=== PATIENT | female | born 1950 | race Two or more races ===

== ENCOUNTER 2022-07-30 09:29 | Outpatient (CLI) | payer OTHER | END 2022-07-30 09:39 | disposition home or self-care (01) | LOC: MRI 09:29 | PROVIDERS: ATTEND Obstetrics & Gynecology Gynecologic Oncology | DX: C54.1 Malignant neoplasm of endometrium (principal) | CPT/HCPCS: 72197; Q9965 ==

== ENCOUNTER 2022-08-03 07:08 | Outpatient (CLI) | payer OTHER | END 2022-08-03 07:10 | disposition home or self-care (01) | LOC: NUCLEAR 07:08 | PROVIDERS: ATTEND Obstetrics & Gynecology Gynecologic Oncology | DX: C54.1 Malignant neoplasm of endometrium (principal) | CPT/HCPCS: 78815; A9552 ==